=== PATIENT | female | born 1995 | race Caucasian/White ===

== ENCOUNTER 2019-03-22 08:01 | Emergency (ER) | payer OTHER ==
--- NOTE | 2019-03-22 08:03 | ER Report ---
History and Physical Time Seen By MD: 08:03 CHENG/DARNELL CHIEF COMPLAINT: Upper abdominal pain HISTORY OF PRESENT ILLNESS: Patient is a 23-year-old female here with complaints of upper abdominal pain, acute onset this morning. Patient reports having an episode in the last several weeks of similar symptoms. She was recently treated for a sinus infection with doxycycline last dose was 2 days prior with 7 days treatment. Patient is currently being treated for a yeast infection. Patient denies other medical problems. Patient is afebrile, hemodynamically stable at time of evaluation, tender in the area midepigastrium, left upper quadrant. REVIEW OF SYSTEMS: Constitutional: No fever, no chills. Eyes: No discharge. ENT: No sore throat. Cardiovascular: No chest pain, no palpitations. Respiratory: No cough, no shortness of breath. Gastrointestinal: + Left upper quadrant, midepigastrium abdominal pain, no vomiting, + nausea Genitourinary: No hematuria. Musculoskeletal: No back pain. Skin: No rashes. Neurological: No headache. Allergies: Coded Allergies: Penicillins (Verified Allergy, Unknown, 03/22/19) Home Meds Active Scripts Omeprazole Magnesium (PRILOSEC OTC) 20 Mg Tablet.dr, 1 TAB PO QDAY for 28 Days, #28 TAB Prov:LOWELL KAUFMAN DO 03/22/19 Ondansetron 4 Mg Odt (ONDANSETRON 4 MG ODT) 4 Mg Tab.rapdis, 4 MG PO ONCE, #20 TAB Prov:LOWELL KAUFMAN DO 03/22/19 Reported Medications Fluconazole (DIFLUCAN) 150 Mg Tablet, 150 MG PO QDAY 03/22/19 Constitutional Vital Sign - Last 24 Hours 03/22/19 03/22/19 03/22/19 03/22/19 08:10 08:10 08:30 08:31 Temp 98.1 Pulse 86 81 Resp 20 B/P (MAP) 123/64 123/64 (83) 114/65 (81) Pulse Ox 95 94 O2 Delivery Room Air 03/22/19 03/22/19 03/22/19 03/22/19 09:00 09:01 09:30 09:31 Pulse 79 76 B/P (MAP) 109/68 (82) 111/67 (82) Pulse Ox 93 89 Physical Exam General Appearance: The patient is alert, has no immediate need for airway protection and no signs of toxicity. Uncomfortable appearing Eyes: Pupils equal and round no pallor or injection. ENT, Mouth: Mucous membranes are moist. Respiratory: There are no retractions, lungs are clear to auscultation. Cardiovascular: Regular rate and rhythm. [ ] Gastrointestinal: Tenderness on palpation of the left upper quadrant, midepigastrium with no rebound or guarding Neurological: No focal neurological deficit Skin: Warm and dry, no rashes. Musculoskeletal: Neck is supple non tender. Extremities are nontender, nonswollen and have full range of motion. DIFFERENTIAL DIAGNOSIS: After history and physical exam differential diagnosis was considered for abdominal pain including but not limited to appendicitis, cholecystitis, gastritis and urinary tract infection. Medical Decision Making Data Points Result Diagram: 03/22/19 0823 03/22/19 0823 Laboratory Hematology Test 03/22/19 08:12 03/22/19 08:23 Urine Color Yellow Urine Clarity Clear Urine pH 5.0 pH (4.8-9.5) Urine Specific [place] 1.026 Urine Protein Negative mg/dL (NEGATIVE) Urine Glucose (UA) Negative mg/dL (NEGATIVE) Urine Ketones Negative mg/dL (NEGATIVE) Urine Blood Negative (NEGATIVE) Urine Nitrite Negative (NEGATIVE) Urine Bilirubin Negative (NEGATIVE) Urine Urobilinogen Negative mg/dL (0.2-1.9) Urine Leukocyte Esterase Negative (NEGATIVE) Urine RBC <1 /HPF (0-2/HPF) Urine WBC <1 /HPF (0-5/HPF) Urine Squamous Epithelial Cells Many /LPF (</=FEW) Urine Bacteria Negative /HPF (NONE-FEW) Urine Mucus Few /HPF (NONE-FEW) Red Blood Count 5.32 M/uL (4.17-5.56) Mean Corpuscular Volume 86.8 fL (80.0-96.0) Mean Corpuscular Hemoglobin 29.3 pg (26.0-33.0) Mean Corpuscular Hemoglobin Concent 33.7 g/dL (32.0-36.0) Red Cell Distribution Width 14.2 % (11.5-14.5) Mean Platelet Volume 7.5 fL (7.2-11.1) Neutrophils (%) (Auto) 80.5 % (39.4-72.5) Lymphocytes (%) (Auto) 11.5 % (17.6-49.6) Monocytes (%) (Auto) 6.9 % (4.1-12.4) Eosinophils (%) (Auto) 0.5 % (0.4-6.7) Basophils (%) (Auto) 0.6 % (0.3-1.4) Nucleated RBC Relative Count (auto) 0.0 /100WBC Neutrophils # (Auto) 8.1 K/uL (2.0-7.4) Lymphocytes # (Auto) 1.2 K/uL (1.3-3.6) Monocytes # (Auto) 0.7 K/uL (0.3-1.0) Eosinophils # (Auto) 0.0 K/uL (0.0-0.5) Basophils # (Auto) 0.1 K/uL (0.0-0.1) Nucleated RBC Absolute Count (auto) 0.00 K/uL Sodium Level 141 mmol/L (137-145) Potassium Level 4.0 mmol/L (3.5-5.0) Chloride Level 107 mmol/L (98-107) Carbon Dioxide Level 24 mmol/L (22-31) Blood Urea Nitrogen 20 mg/dl (7-18) Creatinine 0.90 mg/dl (0.52-1.04) Glomerular Filtration Rate Calc > 60.0 Random Glucose 89 mg/dl (75-110) Calcium Level 9.1 mg/dl (8.4-10.2) Total Bilirubin 0.4 mg/dl (0.2-1.3) Aspartate Amino Transf (AST/SGOT) 26 U/L (0-35) Alanine Aminotransferase (ALT/SGPT) 29 U/L (0-56) Alkaline Phosphatase 64 U/L (0-126) C-Reactive Protein < 0.5 mg/dl (<1.0) Total Protein 7.7 g/dl (6.3-8.2) Albumin 4.5 g/dl (3.5-5.0) Lipase 51 U/L (23-300) Human Chorionic Gonadotropin, Qual Negative (NEGATIVE) Helicobacter pylori IgG Antibody Negative (NEGATIVE) Chemistry Test 03/22/19 08:12 03/22/19 08:23 Urine Color Yellow Urine Clarity Clear Urine pH 5.0 pH (4.8-9.5) Urine Specific [place] 1.026 Urine Protein Negative mg/dL (NEGATIVE) Urine Glucose (UA) Negative mg/dL (NEGATIVE) Urine Ketones Negative mg/dL (NEGATIVE) Urine Blood Negative (NEGATIVE) Urine Nitrite Negative (NEGATIVE) Urine Bilirubin Negative (NEGATIVE) Urine Urobilinogen Negative mg/dL (0.2-1.9) Urine Leukocyte Esterase Negative (NEGATIVE) Urine RBC <1 /HPF (0-2/HPF) Urine WBC <1 /HPF (0-5/HPF) Urine Squamous Epithelial Cells Many /LPF (</=FEW) Urine Bacteria Negative /HPF (NONE-FEW) Urine Mucus Few /HPF (NONE-FEW) White Blood Count 10.0 k/uL (4.5-11.0) Red Blood Count 5.32 M/uL (4.17-5.56) Hemoglobin 15.6 g/dL (12.0-16.0) Hematocrit 46.2 % (34.0-47.0) Mean Corpuscular Volume 86.8 fL (80.0-96.0) Mean Corpuscular Hemoglobin 29.3 pg (26.0-33.0) Mean Corpuscular Hemoglobin Concent 33.7 g/dL (32.0-36.0) Red Cell Distribution Width 14.2 % (11.5-14.5) Platelet Count 323 K/uL (150-450) Mean Platelet Volume 7.5 fL (7.2-11.1) Neutrophils (%) (Auto) 80.5 % (39.4-72.5) Lymphocytes (%) (Auto) 11.5 % (17.6-49.6) Monocytes (%) (Auto) 6.9 % (4.1-12.4) Eosinophils (%) (Auto) 0.5 % (0.4-6.7) Basophils (%) (Auto) 0.6 % (0.3-1.4) Nucleated RBC Relative Count (auto) 0.0 /100WBC Neutrophils # (Auto) 8.1 K/uL (2.0-7.4) Lymphocytes # (Auto) 1.2 K/uL (1.3-3.6) Monocytes # (Auto) 0.7 K/uL (0.3-1.0) Eosinophils # (Auto) 0.0 K/uL (0.0-0.5) Basophils # (Auto) 0.1 K/uL (0.0-0.1) Nucleated RBC Absolute Count (auto) 0.00 K/uL Glomerular Filtration Rate Calc > 60.0 Calcium Level 9.1 mg/dl (8.4-10.2) Total Bilirubin 0.4 mg/dl (0.2-1.3) Aspartate Amino Transf (AST/SGOT) 26 U/L (0-35) Alanine Aminotransferase (ALT/SGPT) 29 U/L (0-56) Alkaline Phosphatase 64 U/L (0-126) C-Reactive Protein < 0.5 mg/dl (<1.0) Total Protein 7.7 g/dl (6.3-8.2) Albumin 4.5 g/dl (3.5-5.0) Lipase 51 U/L (23-300) Human Chorionic Gonadotropin, Qual Negative (NEGATIVE) Helicobacter pylori IgG Antibody Negative (NEGATIVE) Urinalysis Test 03/22/19 08:12 Urine Color Yellow Urine Clarity Clear Urine pH 5.0 pH (4.8-9.5) Urine Specific [place] 1.026 Urine Protein Negative mg/dL (NEGATIVE) Urine Glucose (UA) Negative mg/dL (NEGATIVE) Urine Ketones Negative mg/dL (NEGATIVE) Urine Blood Negative (NEGATIVE) Urine Nitrite Negative (NEGATIVE) Urine Bilirubin Negative (NEGATIVE) Urine Urobilinogen Negative mg/dL (0.2-1.9) Urine Leukocyte Esterase Negative (NEGATIVE) Urine RBC <1 /HPF (0-2/HPF) Urine WBC <1 /HPF (0-5/HPF) Urine Squamous Epithelial Cells Many /LPF (</=FEW) Urine Bacteria Negative /HPF (NONE-FEW) Urine Mucus Few /HPF (NONE-FEW) ED Course/Re-evaluation ED Course Patient is a 23-year-old female here with complaints of midepigastric and left upper quadrant abdominal pain which started this morning. Patient reportedly had just completed a course of doxycycline for a sinus infection and is currently being treated with Diflucan for yeast infection. Patient is healthy at baseline but complains of burning abdominal pain. She did have a isolated episode within the past several weeks. Patient was given a GI cocktail, basic labs were comple jairo. Initially, imaging was held due to patient's physical exam, chief complaint, age. CRP was negative, there is no leukocytosis, was negative. Patient did have moderate relief of symptoms with GI cocktail, Zofran. Patient was given scripts for Zofran, omeprazole and recommended to follow-up with her PCP closely. Return precautions provided. Decision to Disposition Date: March 22, 2019 Decision to Disposition Time: 09:30 Depart Departure Latest Vital Signs Vital Signs Date Time Temp Pulse Resp B/P (MAP) Pulse Ox O2 Delivery O2 Flow Rate FiO2 03/22/19 09:31 76 89 03/22/19 09:30 111/67 (82) 03/22/19 08:10 98.1 20 Room Air Impression: Primary Impression: Abdominal pain Condition: Improved Disposition: HOME OR SELF-CARE Referrals: KITTY ZUÑIGA MD (PCP) New Scripts Omeprazole Magnesium (PRILOSEC OTC) 20 Mg Tablet.dr 1 TAB PO QDAY for 28 Days, #28 TAB Prov: LOWELL KAUFMAN DO 03/22/19 Ondansetron 4 Mg Odt (ONDANSETRON 4 MG ODT) 4 Mg Tab.rapdis 4 MG PO ONCE, #20 TAB Prov: LOWELL KAUFMAN DO 03/22/19 Patient Instructions: Abdominal Pain (ED) Additional Instructions: Please drink plenty of water. Please return promptly if you develop fevers, worsening abdominal pain, nausea, vomiting, abdominal distention, difficulty urinating or blood in the stools or urine. You may take 1 tablet of Zofran every 4-6 hours as needed for nausea, please take omeprazole 1 tablet approximately 30 minutes prior to breakfast daily. LOWELL KAUFMAN DO March 22, 2019 08:03
[2019-03-22] MEDS ORDERED: FLUC150T40 PO (08:15)
[2019-03-22] MEDS ORDERED: NS(*) 0.9% 1000 ML BAG 1,000 ML IV ONE (08:16)
[2019-03-22] MEDS ORDERED: MAG HYD/AL HYD/SIMETH 30ML UDC PO ONE (08:20)
[2019-03-22] MEDS ORDERED: ONDANSETRON 4 MG/2 ML VIAL IVP ONE (08:20)
[2019-03-22] MEDS ORDERED: LIDOCAINE 2% VISC SLN 15ML UDC PO ONE (08:20)
[2019-03-22 08:45] LABS: PLATELET COUNT, AUTOMATED 323 K/uL (150-450)
[2019-03-22] MEDS ORDERED: ONDA4TAB9 PO (09:14)
[2019-03-22] MEDS ORDERED: OMEP-218 PO (09:14)
[2019-03-22 09:30] VITALS: BP 111/67
== END 2019-03-22 09:36 | disposition home or self-care (01) ==
LOC: ER 08:11
DX: R10.12 Left upper quadrant pain (principal); R10.13 Epigastric pain
CPT/HCPCS: 81001; 83690; 84703; 85025; 86140; 86677; 96361; 96374; 99283; J2405; J7030; 82040; 82247; 82310; 82374; 82435; 82565; 82947; 84075; 84132; 84155; 84295; 84450; 84460; 84520